=== PATIENT | male | born 1985 | race Caucasian/White ===

== ENCOUNTER 2025-09-01 08:52 | Day surgery (SDC) | payer OTHER ==
[~2025-09-01] VITALS: Ht 185.4 cm; Wt 86.8 kg
[~2025-09-01 08:52] MED LIST: ERGO500029 PO; FLUTISP
[2025-09-01] MEDS ORDERED: LIDOCAINE 2% 100 MG/5 ML SDV (FOR ANES.) As Ordered ONE (10:32)
[2025-09-01] MEDS ORDERED: MIDAZOLAM INJ 2 MG/2 ML VIAL As Ordered ONE (10:34)
[2025-09-01] MEDS ORDERED: ONDANSETRON 4MG/2ML VIAL As Ordered ONE (10:36)
[2025-09-01] MEDS: CIPRODEX OTIC SUSP 7.5 ML As Ordered ONE (11:45)
[2025-09-01 12:34] VITALS: BP 139/88; TEMP 97.8; O2SAT 98
== END 2025-09-01 12:49 | disposition home or self-care (01) ==
LOC: M SDC 08:52
PROVIDERS: ATTEND Otolaryngology
DX: H65.23 Chronic serous otitis media, bilateral (principal); H60.8X2 Other otitis externa, left ear
CPT/HCPCS: 69436; J2250; J2405; J3010